=== PATIENT | female | born 1975 | race Caucasian/White ===

== ENCOUNTER 2019-08-17 10:51 | Emergency (ER) | payer SELFPAY ==
[2019-08-17] MEDS ORDERED: HYDROmorphone 1 MG/ML CARPUJECT IVP STA ×3 (11:14→13:27)
[2019-08-17] MEDS ORDERED: ONDANSETRON 4 MG/2 ML VIAL IVP STA ×2 (11:14→13:27)
--- NOTE | 2019-08-17 11:15 | ED Physician Documentation ---
PD HPI ABD PAIN - Stated complaint Stated Complaint: FEMALE - Chief complaint Chief Complaint: Abd Pain - History obtained from History obtained from: Patient (44-year-old woman with history of renal colic and recurrent pyelonephritis presents with left flank pain starting yesterday now radiating into the left lower quadrant today with mild nausea. Pain is severe. She also has burning stabbing dysuria. To her it feels more like a kid rafal infection than it does renal colic. 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 - Present Medications Home Medications: Ambulatory Orders Medication Instructions Recorded Confirmed Methylprednisolone [Medrol] 4 mg PO DAILY #21 tab.ds.pk 02/17/16 Hydrocodone/Acetaminophen 1 - 2 each PO Q6H PRN #14 tablet 08/17/19 [Hydrocodon-Acetaminophen 5-325] Ondansetron Odt [Zofran] 4 mg TL Q6H PRN #10 tablet 08/17/19 - Allergies Allergies/Adverse Reactions: Allergies Allergy/AdvReac Type Severity Reaction Status Date / Time Sulfa (Sulfonamide AdvReac Intermediate "really Verified 08/17/19 11:02 Antibiotics) sick" - Social History Does the pt smoke?: Yes Smoking Status: Current every day smoker Does the pt drink ETOH?: Yes Does the pt have substance abuse?: Yes - Immunizations Immunizations are current?: Yes - POLST Patient has POLST: No PD ED PE NORMAL - Vitals Vital signs reviewed: Yes - General General: Alert and oriented X 3, Other (She appears uncomfortable) - Respiratory Respiratory: No respiratory distress, Clear bilaterally - Abdomen Abdomen: Normal bowel sounds, Soft, Non tender - Back Back: Other (Tender to the left flank, exquisitely so.) - Extremities Extremities: No edema, No calf tenderness / cord - Neuro Neuro: Alert and oriented X 3, Normal speech Results - Vitals Vitals: Vital Signs - 24 hr 08/17/19 08/17/19 08/17/19 10:59 11:45 13:09 Temperature 37.2 C Heart Rate 86 68 66 Respiratory 16 17 15 Rate Blood Pressure 117/78 100/67 108/81 H O2 Saturation 96 100 96 Oxygen O2 Source Room air - Labs Labs: Laboratory Tests 08/17/19 08/17/19 08/17/19 11:07 11:07 11:23 WBC 9.8 RBC 4.72 Hgb 15.1 Hct 43.3 MCV 91.7 MCH 32.0 H MCHC 34.9 RDW 12.8 Plt Count 329 MPV 9.2 Neut # (Auto) 5.8 Lymph # (Auto) 2.8 Perkins # (Auto) 0.9 Eos # (Auto) 0.2 Baso # (Auto) 0.1 Absolute Nucleated RBC 0.00 Nucleated RBC % 0.0 Sodium Potassium Chloride Carbon Dioxide Anion Gap BUN Creatinine Estimated GFR (MDRD) Glucose Calcium Total Bilirubin AST ALT Alkaline Phosphatase Total Protein Albumin Globulin Albumin/Globulin Ratio Lipase Urine Color YELLOW Urine Clarity CLEAR Urine pH 5.5 Ur Specific [place] 1.025 1.025 Urine Protein NEGATIVE Urine Glucose (UA) NEGATIVE Urine Ketones NEGATIVE Urine Occult Blood NEGATIVE Urine Nitrite NEGATIVE Urine Bilirubin NEGATIVE Urine Urobilinogen 0.2 (NORMAL) Ur Leukocyte Esterase NEGATIVE Ur Microscopic Review NOT INDICATED Urine Culture Comments NOT INDICATED Urine HCG, Qual NEGATIVE 08/17/19 11:23 WBC RBC Hgb Hct MCV MCH MCHC RDW Plt Count MPV Neut # (Auto) Lymph # (Auto) Perkins # (Auto) Eos # (Auto) Baso # (Auto) Absolute Nucleated RBC Nucleated RBC % Sodium 136 Potassium 3.7 Chloride 109 Carbon Dioxide 21 Anion Gap 6.0 BUN 12 Creatinine 0.5 Estimated GFR (MDRD) 135 Glucose 101 H Calcium 8.3 L Total Bilirubin 0.5 AST 18 ALT 17 Alkaline Phosphatase 54 Total Protein 7.0 Albumin 4.2 Globulin 2.8 Albumin/Globulin Ratio 1.5 Lipase 34 Urine Color Urine Clarity Urine pH Ur Specific [place] Urine Protein Urine Glucose (UA) Urine Ketones Urine Occult Blood Urine Nitrite Urine Bilirubin Urine Urobilinogen Ur Leukocyte Esterase Ur Microscopic Review Urine Culture Comments Urine HCG, Qual PD MEDICAL DECISION MAKING - ED course ED course: 44-year-old woman presents with left flank pain. She has a history of renal colic and pyelonephritis. Abdominal exam was normal. CT of the abdomen and pe lvis with IV contrast was done without pertinent findings, this was ordered after lab work which did not explain anything specific noting that her urinalysis was negative. She was feeling better after pain and nausea medicine. On reexamination prior to discharge remained completely nontender. Departure - Departure Disposition: Home, Self Care Clinical Impression: Left flank pain Condition: Good Record reviewed to determine appropriate education?: Yes Instructions: ED Abdominal Pain Unkn Cause Prescriptions: Hydrocodone/Acetaminophen [Hydrocodon-Acetaminophen 5-325] 1 - 2 each PO Q6H PRN #14 tablet PRN Reason: pain Ondansetron Odt [Zofran] 4 mg TL Q6H PRN #10 tablet PRN Reason: Nausea / Vomiting Comments: The cause of your symptoms today is not clear, your urinalysis, blood work, and CAT scan are all normal. Please return in 18 hours if not better, anytime for new or worsening symptoms.
[2019-08-17 11:16] LABS: BILIRUBIN,URINE NEGATIVE (NEGATIVE); GLUCOSE, URINE (UA) NEGATIVE (NEGATIVE); KETONES,URINE (UA) NEGATIVE (NEGATIVE); LEUKOCYTE ESTERASE, URINE NEGATIVE (NEGATIVE); NITRITE,URINE NEGATIVE (NEGATIVE); OCCULT BLOOD,URINE NEGATIVE (NEGATIVE); PH,URINE 5.5 PH (5.0-7.5); PROTEIN,URINE NEGATIVE (NEGATIVE); UROBILINOGEN,URINE 0.2 (NORMAL) E.U./dL (NORMAL)
[2019-08-17 11:18] LABS: CLARITY,URINE CLEAR (CLEAR); HCG UR QUAL NEGATIVE
[2019-08-17 11:26] LABS: BASOPHILS # (AUTO) 0.1 10^3/uL (0.0-0.1); BASOPHILS % (AUTO) 0.9 %; EOSINOPHILS # (AUTO) 0.2 10^3/uL (0.0-0.7); EOSINOPHILS % (AUTO) 1.6 %; HGB - HEMOGLOBIN 15.1 g/dL (12.0-16.0); LYMPHOCYTES # (AUTO) 2.8 10^3/uL (1.5-3.5); LYMPHOCYTES % (AUTO) 28.9 %; MEAN CORPUSCULAR HGB CONC 34.9 g/dL (32.0-36.0); MEAN CORPUSCULAR VOLUME 91.7 fL (81.0-99.0); MEAN PLATELET VOLUME 9.2 fL (7.9-10.8); MONOCYTES # (AUTO) 0.9 10^3/uL (0.0-1.0); MONOCYTES % (AUTO) 9.3 %; NEUTROPHILS # (AUTO) 5.8 10^3/uL (1.5-6.6); NEUTROPHILS % (AUTO) 58.9 %; PLT - PLATELET COUNT 329 10^3/uL (130-450); RED BLOOD COUNT 4.72 10^6/uL (4.20-5.40); RED CELL DISTRIBUTION WIDTH 12.8 % (12.0-15.0); WHITE BLOOD COUNT 9.8 x10^3/uL (4.8-10.8)
[2019-08-17 11:39] LABS: ALBUMIN 4.2 g/dL (3.2-5.5); ALBUMIN/GLOBULIN RATIO 1.5 (1.0-2.2); BILIRUBIN,TOTAL 0.5 mg/dL (0.2-1.0); CALCIUM 8.3 mg/dL (8.5-10.3); CREATININE 0.5 mg/dL (0.4-1.0)
[2019-08-17] MEDS ORDERED: KETOROLAC 30 MG/ML VIAL IVP STA (11:49)
[2019-08-17] MEDS ORDERED: IOVERSOL 320 100 ML VIAL IVP ONE ×2 (12:38→14:18)
--- NOTE | 2019-08-17 13:07 | CT Report ---
Reason: IV only, L abd pain Procedure Date: 08/17/2019 Accession Number: [id number] / [id number] Procedure: CT - Abdomen/Pelvis W CPT Code: Final Report FULL RESULT: EXAM: CT ABDOMEN AND PELVIS EXAM DATE: 08/17/2019 12:50 PM. CLINICAL HISTORY: IV only, left abdominal pain. COMPARISONS: ABDOMEN/PELVIS W/ 03/16/2013 11:28 AM. TECHNIQUE: Routine helical CT imaging was performed through the abdomen and pelvis. IV contrast: 80 mL Optiray 320 contrast. Enteric contrast: No. Reconstructions: Coronal and sagittal. In accordance with CT protocol optimization, one or more of the following dose reduction techniques were utilized for this exam: automated exposure control, adjustment of mA and/or KV based on patient size, or use of iterative reconstructive technique. FINDINGS: Lung Bases: Unremarkable. Liver: Stable subcentimeter cystic foci in the left hepatic lobe. No new or enlarging hepatic masses. Gallbladder/Bile Ducts: Previous cholecystectomy. Stable borderline prominence of the biliary system. Spleen: Normal. Pancreas: Normal. Adrenal Glands: Normal. Kidneys: Symmetric enhancement. No hydronephrosis. Stable 1 mm calculus lower pole right kidney. Peritoneal Cavity/Bowel: Normal. No free fluid, free air or adenopathy. No masses or acute inflammatory process. The appendix is not seen. Pelvic Organs: Normal. The bladder and visualized pelvic organs are within normal limits. Vasculature: No aneurysms or other significant abnormality. Bones: No significant abnormality. Other: None. IMPRESSION: No acute processes detected within the abdomen or pelvis. RADIA
[2019-08-17 13:37] VITALS: BP 107/68
== END 2019-08-17 13:37 | disposition home or self-care (01) ==
LOC: ED 10:51
DX: R10.9 Unspecified abdominal pain (principal); F17.200 Nicotine dependence, unspecified, uncomplicated
CPT/HCPCS: 36415; 74177; 80053; 81003; 81025; 83690; 85025; 96374; 96376; 99284; J1170; Q9967; 81001; 87086

== ENCOUNTER 2019-10-14 00:30 | Outpatient (CLI) | payer SELFPAY | END 2019-10-14 00:31 | disposition critical access hospital (66) | LOC: EMS 00:30 | PROVIDERS: ATTEND Surgery | DX: R10.9 Unspecified abdominal pain (principal) | CPT/HCPCS: A0425; A0429 ==

== ENCOUNTER 2019-10-14 00:46 | Emergency (ER) | payer SELFPAY ==
--- NOTE | 2019-10-14 01:02 | ED Physician Documentation ---
History of Present Illness - Stated complaint Stated Complaint: R ABD PN - Chief complaint Chief Complaint: Abd Pain - History obtained from History obtained from: Patient, EMS (Patient is a 44-year-old female brought in by EMS after she was drinking alcohol tonight and then started complaining of abdominal pain. Patient was seen here 10 days ago for abdominal pain she had a negative CT scan, the patient thinks she might have kidney stones.), Other (Patient admits to marijuana and alcohol use tonight.) Review of Systems Constitutional: reports: Reviewed and negative Eyes: reports: Reviewed and negative Ears: reports: Reviewed and negative Nose: reports: Reviewed and negative Throat: reports: Reviewed and negative Cardiac: reports: Reviewed and negative Respiratory: reports: Reviewed and negative GI: reports: Abdominal Pain : reports: Reviewed and negative Skin: reports: Reviewed and negative Musculoskeletal: reports: Reviewed and negative Neurologic: reports: Reviewed and negative Psychiatric: reports: Reviewed and negative Endocrine: reports: Reviewed and negative Immunocompromised: reports: Reviewed and negative PD PAST MEDICAL HISTORY - Past Medical History Past Medical History: Yes Cardiovascular: None Respiratory: None Endocrine/Autoimmune: None GI: GERD : Kidney stones Musculoskeletal: Osteoarthritis Other Past Medical History: Kidney Infnx - Past Surgical History Past Surgical History: Yes General: Cholecystectomy, Appendectomy 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 - Present Medications Home Medications: Ambulatory Orders Medication Instructions Recorded Confirmed Methylprednisolone [Medrol] 4 mg PO DAILY #21 tab.ds.pk 02/17/16 Hydrocodone/Acetaminophen 1 - 2 each PO Q6H PRN #14 tablet 08/17/19 [Hydrocodon-Acetaminophen 5-325] Ondansetron Odt [Zofran] 4 mg TL Q6H PRN #10 tablet 08/17/19 - Allergies Allergies/Adverse Reactions: Allergies Allergy/AdvReac Type Severity Reaction Status Date / Time Sulfa (Sulfonamide AdvReac Intermediate "really Verified 10/14/19 00:52 Antibiotics) sick" - Social History Does the pt smoke?: Yes Smoking Status: Current every day smoker Does the pt drink ETOH?: Yes Does the pt have substance abuse?: Yes Substance Use and Type: Marijuana - Immunizations Immunizations are current?: Yes - POLST Patient has POLST: No PD ED PE NORMAL - Vitals Vital signs reviewed: Yes - General General: Alert and oriented X 3, Well developed/nourished, Other (patient crying) - HEENT HEENT: PERRL - Neck Neck: Supple, no meningeal sign - Cardiac Cardiac: RRR, No murmur - Respiratory Respiratory: Clear bilaterally - Abdomen Abdomen: Normal bowel sounds, Soft, Non tender, Non distended, No organomegaly, Other (no midline abd pulsatile mass) - Derm Derm: Warm and dry - Extremities Extremities: No deformity - Neuro Neuro: Alert and oriented X 3 - Psych Psych: Other (intoxicated, crying.) Results - Vitals Vitals: Vital Signs - 24 hr 10/14/19 10/14/19 10/14/19 00:52 00:56 02:52 Temperature 36.4 C L Heart Rate 62 62 65 Respiratory 18 18 20 Rate Blood Pressure 97/73 97/73 125/95 H O2 Saturation 100 100 100 10/14/19 10/14/19 04:10 05:52 Temperature Heart Rate 73 73 Respiratory 16 14 Rate Blood Pressure 102/69 90/67 O2 Saturation 97 98 Oxygen O2 Source Room air - Labs Labs: Laboratory Tests 10/14/19 10/14/19 10/14/19 01:33 01:33 01:33 WBC 17.6 H RBC 4.69 Hgb 15.2 Hct 43.6 MCV 93.0 MCH 32.4 H MCHC 34.9 RDW 13.1 Plt Count 305 MPV 8.9 Neut # (Auto) Not Reportable Lymph # (Auto) Not Reportable Lipscomb # (Auto) Not Reportable Eos # (Auto) Not Reportable Baso # (Auto) Not Reportable Absolute Nucleated RBC Not Reportable Total Counted 100 Band Neuts % (Manual) 0 Abnorm Lymph % (Manual) 0 Nucleated RBC % Not Reportable Neutrophils # (Manual) 10.7 H Lymphocytes # (Manual) 3.7 H Monocytes # (Manual) 2.3 H Eosinophils # (Manual) 0.7 Basophils # (Manual) 0.2 H Differential Comment MANUAL DIFFERENTIAL WBC Morphology NORMAL APPEARANCE Platelet Estimate NORMAL (130-450,000) Platelet Morphology NORMAL APPEARANCE RBC Morph Micro Appear NORMAL APPEARANCE PT 12.2 INR 1.1 APTT 26.8 Sodium 137 Potassium 3.0 L Chloride 105 Carbon Dioxide 23 Anion Gap 9.0 BUN 8 Creatinine 0.6 Estimated GFR (MDRD) 110 Glucose 83 Calcium 8.5 Total Bilirubin 0.6 AST 30 ALT 37 Alkaline Phosphatase 53 CK-MB (CK-2) Total Protein 7.3 Albumin 4.4 Globulin 2.9 Albumin/Globulin Ratio 1.5 Lipase 41 Serum HCG, Qual Urine Color Urine Clarity Urine pH Ur Specific [place] Urine Protein Urine Glucose (UA) Urine Ketones Urine Occult Blood Urine Nitrite Urine Bilirubin Urine Urobilinogen Ur Leukocyte Esterase Urine RBC Urine WBC Ur Squamous Epith Cells Urine Bacteria Ur Microscopic Review Urine Culture Comments Urine HCG, Qual Urine Opiates Screen Ur Oxycodone Screen Urine Methadone Screen Ur Propoxyphene Screen Ur Barbiturates Screen Ur Tricyclics Screen Ur Phencyclidine Scrn Ur Amphetamine Screen U Methamphetamines Scrn U Benzodiazepines Scrn Urine Cocaine Screen U Cannabinoids Screen Ethyl Alcohol 149.9 10/14/19 10/14/19 10/14/19 01:33 01:33 02:25 WBC RBC Hgb Hct MCV MCH MCHC RDW Plt Count MPV Neut # (Auto) Lymph # (Auto) Lipscomb # (Auto) Eos # (Auto) Baso # (Auto) Absolute Nucleated RBC Total Counted Band Neuts % (Manual) Abnorm Lymph % (Manual) Nucleated RBC % Neutrophils # (Manual) Lymphocytes # (Manual) Monocytes # (Manual) Eosinophils # (Manual) Basophils # (Manual) Differential Comment WBC Morphology Platelet Estimate Platelet Morphology RBC Morph Micro Appear PT INR APTT Sodium Potassium Chloride Carbon Dioxide Anion Gap BUN Creatinine Estimated GFR (MDRD) Glucose Calcium Total Bilirubin AST ALT Alkaline Phosphatase CK-MB (CK-2) 1.1 Total Protein Albumin Globulin Albumin/Globulin Ratio Lipase Serum HCG, Qual NEGATIVE Urine Color YELLOW Urine Clarity CLEAR Urine pH 6.0 Ur Specific [place]anan <=1.005 Urine Protein NEGATIVE Urine Glucose (UA) NEGATIVE Urine Ketones NEGATIVE Urine Occult Blood NEGATIVE Urine Nitrite NEGATIVE Urine Bilirubin NEGATIVE Urine Urobilinogen 0.2 (NORMAL) Ur Leukocyte Esterase TRACE H Urine RBC 0-5 Urine WBC 0-3 Ur Squamous Epith Cells RARE Squamous Urine Bacteria Rare Ur Microscopic Review INDICATED Urine Culture Comments INDICATED Urine HCG, Qual Cancelled Urine Opiates Screen NEGATIVE Ur Oxycodone Screen NEGATIVE Urine Methadone Screen NEGATIVE Ur Propoxyphene Screen NEGATIVE Ur Barbiturates Screen NEGATIVE Ur Tricyclics Screen NEGATIVE Ur Phencyclidine Scrn NEGATIVE Ur Amphetamine Screen NEGATIVE U Methamphetamines Scrn NEGATIVE U Benzodiazepines Scrn NEGATIVE Urine Cocaine Screen NEGATIVE U Cannabinoids Screen POSITIVE H Ethyl Alcohol PD MEDICAL DECISION MAKING - ED course Complexity details: reviewed results, re-evaluated patient (06:38. Patient is clinically sober at this time she has medical decision-making capability and capacity. She has a steady gait and clear speech and is tolerated p.o. challenge.She has no abdominal pain patient updated on her lab and imaging results encourage close follow-up with a pcp.), considered differential, d/w patient, other (CT scan of the abdomen and pelvis shows nonobstructing right renal stones, nonspecific bladder distention and dense fecal retention.Patient does have acute alcohol intoxication as well as marijuana abuse noted.) Departure - Departure Disposition: 01 Home, Self Care Clinical Impression: Alcohol abuse, Marijuana abuse Abdominal pain Qualifiers: Abdominal location: unspecified location Qualified Code(s): R10.9 - Unspecified abdominal pain Alcohol intoxication Qualifiers: Complication of substance-induced condition: uncomplicated Qualified Code(s): F10.920 - Alcohol use, unspecified with intoxication, uncomplicated Condition: Stable Instructions: ED Alcohol Intoxication Follow-Up: your, doctor [Other] - Tomorrow Comments: Discontinue alcohol and marijuana use
[2019-10-14] MEDS ORDERED: SODIUM CHLORIDE 0.9% 1,000 ML IV STA (01:21)
[2019-10-14 01:48] LABS: BASOPHILS % (AUTO) 0.7 %; EOSINOPHILS % (AUTO) 1.5 %; HGB - HEMOGLOBIN 15.2 g/dL (12.0-16.0); LYMPHOCYTES % (AUTO) 23.7 %; MEAN CORPUSCULAR HEMOGLOBIN 32.4 pg (27.0-31.0); MEAN CORPUSCULAR HGB CONC 34.9 g/dL (32.0-36.0); MEAN PLATELET VOLUME 8.9 fL (7.9-10.8); MONOCYTES % (AUTO) 9.2 %; NEUTROPHILS % (AUTO) 64.2 %; PLT - PLATELET COUNT 305 10^3/uL (130-450); RED BLOOD COUNT 4.69 10^6/uL (4.20-5.40); RED CELL DISTRIBUTION WIDTH 13.1 % (12.0-15.0); WHITE BLOOD COUNT 17.6 x10^3/uL (4.8-10.8)
[2019-10-14 01:56] LABS: ALBUMIN 4.4 g/dL (3.2-5.5); ALBUMIN/GLOBULIN RATIO 1.5 (1.0-2.2); BILIRUBIN,TOTAL 0.6 mg/dL (0.2-1.0); CALCIUM 8.5 mg/dL (8.5-10.3); CREATININE 0.6 mg/dL (0.4-1.0); TOTAL PROTEIN 7.3 g/dL (6.7-8.2)
[2019-10-14 01:59] LABS: INR 1.1 (0.8-1.2); PT - PROTHROMBIN TIME 12.2 secs (9.9-12.6)
[2019-10-14 02:04] LABS: ABNORMAL LYMPHS % (MANUAL) 0 %; BAND NEUTROPHILS % (MANUAL) 0 %
[2019-10-14 02:07] LABS: BASOPHILS # (MANUAL) 0.2 10^3/uL (0-0.1); BASOPHILS % (MANUAL) 1 %; DIFFERENTIAL COMMENT MANUAL DIFFERENTIAL; EOSINOPHILS # (MANUAL) 0.7 10^3/uL (0-0.7); LYMPHOCYTES # (MANUAL) 3.7 10^3/uL (1.5-3.5); LYMPHOCYTES % (MANUAL) 21 %; MONOCYTES # (MANUAL) 2.3 10^3/uL (0.0-1.0); PARTIAL THROMBOPLASTIN TIME 26.8 secs (24.9-33.3); PLATELET ESTIMATE, MANUAL NORMAL (130-450,000) (NORMAL); PLATELET MORPHOLOGY NORMAL APPEARANCE (NORMAL); RBC MORPHOLOGY (MULTIPLE) NORMAL APPEARANCE (NORMAL)
[2019-10-14 02:20] LABS: HCG,QUALITATIVE BLOOD NEGATIVE
[2019-10-14 02:30] LABS: MUDS CUTOFF CONCENTRATIONS CUTOFF CONC BELOW:
[2019-10-14 02:43] LABS: BILIRUBIN,URINE NEGATIVE (NEGATIVE); CLARITY,URINE CLEAR (CLEAR); GLUCOSE, URINE (UA) NEGATIVE (NEGATIVE); KETONES,URINE (UA) NEGATIVE (NEGATIVE); LEUKOCYTE ESTERASE, URINE TRACE (NEGATIVE); NITRITE,URINE NEGATIVE (NEGATIVE); OCCULT BLOOD,URINE NEGATIVE (NEGATIVE); PROTEIN,URINE NEGATIVE (NEGATIVE); UROBILINOGEN,URINE 0.2 (NORMAL) E.U./dL (NORMAL)
[2019-10-14 02:44] LABS: BACTERIA,URINE Rare /HPF (None Seen); RBC,URINE 0-5 /HPF (0-5); SQUAMOUS EPITHELIAL CELL,UR RARE Squamous (<= Few)
[2019-10-14 02:45] LABS: AMPHETAMINE SCREEN,URINE NEGATIVE (NEGATIVE); BENZODIAZEPINES SCREEN, URINE NEGATIVE (NEGATIVE); COCAINE SCREEN URINE NEGATIVE (NEGATIVE); METHADONE SCREEN, URINE NEGATIVE (NEGATIVE); METHAMPHETAMINES SCREEN, URINE NEGATIVE (NEGATIVE); OPIATE SCREEN, URINE NEGATIVE (NEGATIVE); OXYCODONE SCREEN, URINE NEGATIVE (NEGATIVE); PROPOXYPHENE SCREEN, URINE NEGATIVE (NEGATIVE); TRICYCLIC ANTIDEPRESSANT,URINE NEGATIVE (NEGATIVE)
[2019-10-14] MEDS ORDERED: fentaNYL 100 MCG/2 ML VIAL IVP STA (02:47)
[2019-10-14] MEDS ORDERED: HALOPERIDOL 5 MG/ML VIAL IM STA (03:39)
[2019-10-14 06:43] VITALS: BP 114/73
--- NOTE | 2019-10-14 09:24 | CT Report ---
PROCEDURE: Abdomen/Pelvis WO INDICATIONS: right flank pain hx of stones TECHNIQUE: Noncontrast 5 mm thick sections acquired from the diaphragms to the symphysis. 5 mm coronal and sagi ttal reformats were then performed. For radiation dose reduction, the following was used: automated exposure control, adjustment of mA and/or kV according to patient size. COMPARISON: None. FINDINGS: Image quality: Excellent. ABDOMEN: Lung bases: Lung bases are clear. Heart size is normal. Solid organs: Liver and spleen are normal in size. Gallbladder is surgically absent. Pancreas is no rmal in contours. No adrenal nodules. Kidneys are normal in size, without hydronephrosis. 2 adjacen t nonobstructing stones are seen in lower pole of right kidney measures up to 2 mm in size. No left-s ided renal stone. Peritoneum and bowel: Unenhanced bowel loops demonstrate normal wall thickness and caliber. No free fluid or air. Fecal stasis in the colon is seen. Nodes and vessels: No retroperitoneal or mesenteric adenopathy by size criteria. Aorta and inferior vena cava are normal in caliber. Miscellaneous: No ventral hernias. PELVIS: Genitourinary: Bladder wall thickness is normal. Bladder is distended and measures up to 12 cm in tr ansverse dimension. Miscellaneous: No inguinal hernias or adenopathy. Bones: No suspicious bony lesions. No vertebral body compression fractures. IMPRESSION: 1. Nonobstructing right renal calculi. No hydronephrosis. Distended urinary bladder. No bladder wall abnormality. 2. No bowel obstruction. No free fluid or free air. Significant fecal stasis suggestive of constipati on. 3. Prior cholecystectomy. No discrepancies. Reviewed by: Enio Simpson MD on 10/14/2019 9:23 AM PDT Approved by: Enio Simpson MD on 10/14/2019 9:23 AM PDT Station ID: [id number]
== END 2019-10-14 06:42 | disposition home or self-care (01) ==
LOC: EDUNIT# → ED 00:46
DX: R10.9 Unspecified abdominal pain (principal); F12.10 Cannabis abuse, uncomplicated; F10.129 Alcohol abuse with intoxication, unspecified; N20.0 Calculus of kidney; N32.89 Other specified disorders of bladder; F17.200 Nicotine dependence, unspecified, uncomplicated
CPT/HCPCS: 36415; 74176; 80053; 80306; 80320; 81001; 81003; 81025; 82553; 83690; 84703; 85025; 85610; 85730; 87086; 96361; 96374; 99283

== ENCOUNTER 2021-02-12 11:51 | Emergency (ER) | payer SELFPAY ==
[2021-02-12 12:24] VITALS: BP 119/81
--- NOTE | 2021-02-12 12:49 | ED Physician Documentation ---
PD HPI SKIN - Stated complaint Stated Complaint: REDNESS SWLLING R KNEE - Chief complaint Chief Complaint: Wound - History obtained from History obtained from: Patient - History of Present Illness Location: [facility] Quality / character: Itchy, Painful, Burning Improved by: No: Steroid cream Associated symptoms: No: Fever, Myalgias, Joint pain, Headache, Facial swelling, Dyspnea, Abd pain, N/V/D, Urinary sx Contributing factors: Unknown Similar symptoms before: Has not had sx before - Treatment prior to arrival Treatment prior to arrival: Burn cream w/ lidocaine, hydrocortisone, aleve - Additional information Additional information: Patient presents with right knee redness, and discomfort. Noticed last night after she put on her pajamas. She had a local burning pain of the right knee. She noticed some redness which had spread this morning around the right knee. She describes the pain as burning and itching but also painful. She is able to flex and extend the knee and ambulate without difficulty. She has not had any fever, chills, or other systemic symptoms as noted above. Review of Systems Constitutional: reports: Reviewed and negative Cardiac: reports: Reviewed and negative Respiratory: reports: Reviewed and negative GI: reports: Reviewed and negative : reports: Reviewed and negative Musculoskeletal: reports: Extremity pain. 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 - Present Medications Home Medications: Ambulatory Orders Medication Instructions Recorded Confirmed methylPREDNISolone [Medrol] 4 mg PO DAILY #21 tab.ds.pk 02/17/16 Hydrocodone/Acetaminophen 1 - 2 each PO Q6H PRN #14 tablet 08/17/19 [Hydrocodon-Acetaminophen 5-325] Ondansetron Odt [Zofran] 4 mg TL Q6H PRN #10 tablet 08/17/19 cephALEXin [Keflex] 500 mg PO Q6H #28 02/12/21 predniSONE [Deltasone] 40 mg PO DAILY 5 Days #10 tablet 02/12/21 - Allergies Allergies/Adverse Reactions: Allergies Allergy/AdvReac Type Severity Reaction Status Date / Time Sulfa (Sulfonamide AdvReac Intermediate "really Verified 02/12/21 12:22 Antibiotics) sick" - Social History Does the pt smoke?: Yes Smoking Status: Current every day smoker Does the pt drink ETOH?: Yes Does the pt have substance abuse?: Yes - Immunizations Immunizations are current?: Yes - POLST Patient has POLST: No PD ED PE NORMAL - Vitals Vital signs reviewed: Yes - General General: Alert and oriented X 3, No acute distress, Well developed/nourished - HEENT HEENT: Atraumatic, Moist mucous membranes - Neck Neck: Supple, no meningeal sign, No JVD - Cardiac Cardiac: RRR, No murmur - Respiratory Respiratory: No respiratory distress, Clear bilaterally - Abdomen Abdomen: Normal bowel sounds, Soft - Derm Derm: Normal color, Warm and dry, Other (There is a well-circumscribed area of erythema around the right patella. Extending slightly up into the right thigh. It is warm to touch, there is no area of induration or focal fluid collection, no bites or stings, no blistering or vesicles.) - Extremities Extremities: No deformity, No tenderness to palpate, Normal ROM s pain, Other (Is erythema over the right knee as described above however she has normal flexion extension and range of motion of the right knee.) - Neuro Neuro: Alert and oriented X 3, No motor deficit, No sensory deficit, Normal speech Eye Opening: Spontaneous Motor: Obeys Commands Verbal: Oriented GCS Score: 15 - Psych Psych: Normal mood, Normal affect Results - Vitals Vitals: Vital Signs - 24 hr 02/12/21 12:22 Temperature 36.8 C Heart Rate 86 Respiratory 18 Rate Blood Pressure 119/81 H O2 Saturation 97 Oxygen O2 Source Room air PD MEDICAL DECISION MAKING - ED course Complexity details: considered differential, d/w patient ED course: Is a 45-year-old Who presented with right knee redness and pain. Differentials included allergic reaction, cellulitis, septic joint, contact dermatitis. On physical exam she has well-circumscribed area of erythema over the right patella but no focal fluid collection. The area is warm to touch and slightly raised. I suspect this is a contact dermatitis but I am going to treat cautiously as well with Keflex for possible cellulitis overlying the joint. She does not have any joint pain or difficulty with range of motion therefore low suspicion for septic joint, she has no systemic symptoms, no fever or flulike symptoms. Patient will be treated with prednisone and Keflex and advised to use a cool compress and monitor site for her spreading erythema or other new symptoms. Return precautions reviewed in detail. Departure - Departure Disposition: 01 Home, Self Care Clinical Impression: Cellulitis of leg, right Condition: Good Instructions: Cellulitis Dc Prescriptions: predniSONE [Deltasone] 40 mg PO DAILY 5 Days #10 tablet cephALEXin [Keflex] 500 mg PO Q6H #28 Comments: You presented with redness and swelling of the right knee. Symptoms are more consistent with an allergic action but given the warmth and pain to the area and also going to treat you for possible cellulitis. You will take antibiotics for 7 days and steroids for 5 days. Continue to use cool compress, monitor site and if the redness spreads or develop difficulty moving your knee, develop a fever or flulike symptoms, please return to the ER for further evaluation.
== END 2021-02-12 13:05 | disposition home or self-care (01) ==
LOC: ED 11:51
DX: L03.115 Cellulitis of right lower limb (principal); F17.200 Nicotine dependence, unspecified, uncomplicated
CPT/HCPCS: 99282; 99283